=== PATIENT | female | born 1975 | race Caucasian/White ===

== ENCOUNTER → 2018-01-09 16:21 | Outpatient (CLI) | payer BC, SELFPAY ==
--- NOTE | 2018-01-09 16:28 | HPBI_ITS ---
MAMMOGRAPHY - BILATERAL SCREENING REASON FOR EXAM: Female, 42 years old. Routine annual screening examination. PERTINENT HISTORY: Non-contributory. TECHNIQUE: Digital bilateral breast davina (3D mammographic acquisition) in the CC and MLO projections. 2-D mediolateral oblique (MLO) and craniocaudad (CC) views of both breasts were obtained. CAD: Full Field Digital Mammography with Computer Added Detection was performed. COMPARISON: None. Baseline examination. FINDINGS: Breast Composition: The breasts are heterogeneously dense, which may obscure small masses. There is a 1.4 cm x 1.4 cm well-defined nodule in the superior retroareolar region of the right breast. Correlation with ultrasound is recommended. No other significant abnormalities are identified. HPBI/SCREENING MAMM (CAD), BILAT IMPRESSION: Well-defined nodular density in the right breast as described. Correlation with ultrasound is recommended. ASSESSMENT CATEGORY: BIRADS Category 0: Incomplete. Need additional imaging evaluation. A letter regarding these results will be sent to the patient by the facility within 30 days. Approximately 10% of breast cancers are not detected by mammography. A normal mammogram should not delay biopsy of a clinically suspicious abnormality. [id number] Electronically Signed: Linwood Irwin MD at 8:14 EDT Tel [phone], Service support ,
== END ==
PROVIDERS: Family Provider Family Medicine; PCP Family Medicine; Visit Provider Obstetrics & Gynecology
DX: Z12.31 Encounter for screening mammogram for malignant neoplasm of breast (principal)
CPT/HCPCS: 77063; 77067

== ENCOUNTER → 2018-01-16 10:25 | Outpatient (CLI) | payer BC, SELFPAY ==
--- NOTE | 2018-01-16 10:26 | US_ITS ---
STUDY: ULTRASOUND BREAST - RIGHT REASON FOR EXAM: Female, 42 years old. Abnormal screening mammogram. TECHNIQUE: Axial and longitudinal images of the RIGHT breast were performed with a high resolution ultrasound transducer. COMPARISON: Comparison is made with prior mammogram dated January 09, 2018. FINDINGS: RIGHT Breast: The mammographic abnormality corresponds to a 1.3 cm x 1.5 cm x 0.9 cm cyst at the 12:00 position breast at 1 cm from nipple. US/Breast Limited Unilateral IMPRESSION: The mammographic abnormality corresponds to 1.3 cm x 1.5 cm x 0.9 cm cyst at the 12:00 position breast at 1 cm from the nipple. ASSESSMENT CATEGORY: BIRADS Category 2: Benign. A letter regarding these results will be sent to the patient by the facility within 30 days. Electronically Signed: Linwood Irwin MD at 12:24 EDT Tel [phone], Service support ,
== END ==
PROVIDERS: Family Provider Family Medicine; PCP Family Medicine; Visit Provider Obstetrics & Gynecology
DX: N60.01 Solitary cyst of right breast (principal)
CPT/HCPCS: 76642

== ENCOUNTER → 2018-02-21 11:33 | Outpatient (CLI) | payer BC, SELFPAY ==
[2018-02-21 15:31] LABS: Estradiol 29.1 pg/mL; Free T3 2.7 pg/mL (2.18-3.98); T4 Free Direct 1.01 ng/dL (0.76-1.46)
[2018-02-27 17:31] LABS: HPV Reflexed? NOT INDICATED
== END ==
PROVIDERS: Visit Provider Obstetrics & Gynecology
DX: Z01.419 Encounter for gynecological examination (general) (routine) without abnormal findings (principal); N92.6 Irregular menstruation, unspecified
CPT/HCPCS: 36415; 82670; 84144; 84439; 84443; 84481; 88175; G0145

== ENCOUNTER → 2019-05-04 07:31 | Outpatient (CLI) | payer BC, SELFPAY ==
[2019-05-04 08:44] LABS: Hemoglobin A1c 5.4 % (4.2-6.3)
[2019-05-04 08:59] LABS: Estradiol 71.8 pg/mL; Free T3 2.9 pg/mL (2.18-3.98); T4 Free Direct 0.91 ng/dL (0.76-1.46); Thyroid Stim Hormone (TSH) 1.35 uIU/mL (0.358-3.74)
[2019-05-05 16:09] LABS: DHEA Sulfate 195.6 ug/dL (57.3-279.2)
[2019-05-06 09:52] LABS: Progesterone Level 4.94 ng/mL (See Comment)
== END ==
PROVIDERS: Family Provider Family Medicine; PCP Family Medicine; Referring Provider Obstetrics & Gynecology; Visit Provider Obstetrics & Gynecology
DX: N92.5 Other specified irregular menstruation (principal); E27.8 Other specified disorders of adrenal gland
CPT/HCPCS: 36415; 82533; 82627; 82670; 83036; 84144; 84403; 84439; 84443; 84481; 82626

== ENCOUNTER → 2019-06-17 13:14 | Outpatient (CLI) | payer BC, SELFPAY ==
[2019-06-21 13:25] LABS: HPV APTIMA, High Risk Negative (Negative)
== END ==
PROVIDERS: Family Provider Family Medicine; PCP Family Medicine; Referring Provider Obstetrics & Gynecology; Visit Provider Obstetrics & Gynecology
DX: Z12.4 Encounter for screening for malignant neoplasm of cervix (principal)
CPT/HCPCS: 87624; 88175; G0145

== ENCOUNTER → 2019-08-08 15:45 | Outpatient (CLI) | payer BC, SELFPAY | PROVIDERS: Family Provider Family Medicine; PCP Family Medicine; Referring Provider Obstetrics & Gynecology; Visit Provider Obstetrics & Gynecology | DX: N76.2 Acute vulvitis (principal) ==

== ENCOUNTER → 2020-04-22 | Outpatient (CLI) | payer BC, SELFPAY ==
--- NOTE | 2020-04-22 09:32 | BI_ITS ---
MAMMOGRAPHY - BILATERAL DIAGNOSTIC REASON FOR EXAM: Female, 44 years old. BILAT MARK G-RT 2-3 CM LUMP/PAIN X 2-3 DAYS, FM HX MAT COUSINAGE?, PRIOR MAMM IN 2018 W/ RT U/S =B PERTINENT HISTORY: Non-contributory. TECHNIQUE: Digital examination. Mediolateral oblique (MLO) and craniocaudad (CC) views of both breasts were obtained along with 3-D, tomosynthesis. CAD: CAD was performed on this study. COMPARISON: 2017 FINDINGS: Breast Composition: The breasts are heterogeneously dense, which may obscure small masses. In the central right breast there is a large well-defined asymmetric density corresponds to the palpable lump felt by the patient. Further evaluation of this with ultrasound is recommended. No other suspicious mass or nodule. The left breast is free of suspicious abnormality. BI/DIAG MAMM W/CAD, BILAT IMPRESSION: Further ultrasonographic evaluation recommended, as described above. Recall Side: Right Breast ASSESSMENT CATEGORY: BIRADS Category 0: Incomplete. Need additional imaging evaluation. A letter regarding these results will be sent to the patient by the facility within 30 days. FOLLOW UP RECOMMENDATION: Ultrasound Recommended. (I) Approximately 10% of breast cancers are not detected by mammography. A normal mammogram should not delay biopsy of a clinically suspicious abnormality. Electronically Signed: Henry Fernandez MD at 11:17 EDT , Service support ,
--- NOTE | 2020-04-22 09:32 | US_ITS ---
STUDY: ULTRASOUND BREAST - RIGHT REASON FOR EXAM: Female, 44 years old. Lump TECHNIQUE: Axial and longitudinal images of the RIGHT breast were performed with a high resolution ultrasound transducer. # OF IMAGES: 19 COMPARISON: None. FINDINGS: RIGHT Breast: Ultrasound evaluation of the right breast, in the area of concern, shows a simple 2.7 x 3.1 x 1.9 cm cyst. It is anechoic with smoothly defined borders and increased through transmission of sound. There is no suspicious shadowing solid lesion, architectural distortion or clustered calcifications. If bothersome to the patient, this cyst should be amenable to drainage via sonographic guidance US/Breast Limited Unilateral IMPRESSION: Simple 2.7 x 3.1 x 1.9 cm cyst corresponding to the palpable abnormality. No suspicious sonographic findings ASSESSMENT CATEGORY: BIRADS Category 2: Benign. A letter regarding these results will be sent to the patient by the facility within 30 days. Electronically Signed: Henry Fernandez MD at 11:02 EDT , Service support ,
== END | disposition home or self-care (01) ==
PROVIDERS: PCP Family Medicine; Referring Provider Obstetrics & Gynecology; Visit Provider Obstetrics & Gynecology
DX: N63.10 Unspecified lump in the right breast, unspecified quadrant (principal)
CPT/HCPCS: 76642; 77062; 77066; G0279

== ENCOUNTER → 2020-05-27 17:05 | Outpatient (CLI) | payer BC, SELFPAY ==
[2020-04-30 09:32] VITALS: BMI 24.5
== END ==
LOC: EN 05-28 09:05 → PAT 06-24 10:09
PROVIDERS: Anesthesiology; PCP Family Medicine; Referring Provider Surgery; Visit Provider Surgery
DX: Z11.59 Encounter for screening for other viral diseases (principal)
CPT/HCPCS: 87635; 94799; U0003

== ENCOUNTER → 2022-11-02 | Outpatient (CLI) | payer BC, SELFPAY ==
[2022-11-07 12:24] LABS: HPV APTIMA, High Risk Negative (Negative)
== END | disposition home or self-care (01) ==
LOC: LABSPEC 16:43
PROVIDERS: PCP Family Medicine; Visit Provider Student in an Organized Health Care Education/Training Program
DX: Z12.4 Encounter for screening for malignant neoplasm of cervix (principal)
CPT/HCPCS: 87624; 88175; G0145